=== PATIENT | female | born 1995 | race Caucasian/White ===

== ENCOUNTER 2016-10-17 07:00 | Inpatient (IN) | payer MEDICAID, OTHER ==
[~2016-10-17] VITALS: Ht 162.6 cm; Wt 113.0 kg
[2016-10-17] VITALS (8 sets, daily range): BP systolic 113–129; BP diastolic 46–73; PULSE 63–88; RESP 16–20; TEMP 97.4–98.4; O2SAT 94–100
[~2016-10-17 07:00] MED LIST: CEPH-583 PO; PNV91TAB3
--- OUTSIDE RECORDS SUMMARY | 2016-10-17 07:13 | XMS REPORT | Continuity of Care Document ---
Author Author [facility] Organization [facility] Address Unknown Phone Unavailable Care Team Providers Care Sander And Buffer Name Role Phone CORTEZ BENÍTEZ MD Primary Care Physician [phone] Insurance Providers Guarantor Reese Angelo Address [address] [place] [address] Email [email or web address] Payer [employer]et[employer] Ppo/Open Choice Policy Number [id number] Subscriber's Name Payal Angelo Relationship 19 Child Group Number [id number] Advance Directives Directive Response Recorded Date/Time Dr Shea Resuscitation Status Full Code 06/04/16 4:23pm Problems Past Problems Medical Problem Onset Date Abdominal pain during Unknown Urinary tract infection Unknown Medications Current Home Medications Medication Dose Units Route Directions Days Qty Instructions Start Date Cephalexin (Keflex) 500 Mg Capsule 1 Cap Oral Four Times Daily 7 Days 28 Capsule 06/03/16 Pnv95/Ferrous Fumarate/Fa ( Caplet) 1 Each Tablet Bedtime 06/03/16 Social History Social History Problem Response Recorded Date/Time Onset Date Status Hx Substance Use No 06/03/2016 3:18pm Not Applicable Not Applicable Hx Alcohol Use No 06/03/2016 3:18pm Not Applicable Not Applicable Hospital Discharge Instructions No hospital discharge instructions. Plan of Care Discharge Date 06/04/16 5:00pm Prescriptions See Medication Section Functional Status No functional status results. Allergies, Adverse Reactions, Alerts No known allergies. Immunizations Query Response on File Recorded Date/Time Influenza Vaccine Hx NONE 06/03/16 3:18pm Vital Signs Acute Vital Signs Vital Response Date/Time Temperature (Fahrenheit) 98.4 deg F (96.8 - 99.1) 06/03/2016 4:02pm Temperature (Calculated Celsius) 36.84064 degrees C (36.0 - 37.3) 06/03/2016 4:02pm Pulse Rate (adult) 88 bpm (60 - 100) 06/03/2016 4:02pm Respiratory Rate 18 breaths/min (10 - 20) 06/03/2016 4:02pm O2 Sat by Pulse Oximetry 100 % (90 - 100) 06/03/2016 4:02pm Blood Pressure 129/62 mm Hg 06/03/2016 4:02pm Height (Feet) 5 feet 06/03/2016 3:00pm Height (Inches) 4.00 inches 06/03/2016 3:00pm Weight (Kilograms) 106.100 kg 06/03/2016 3:00pm Body Mass Index (BMI) 40.0 06/03/2016 3:00pm Results Laboratory Results Test Name Result Units Flags Reference Collection Date/Time Result Date/ Time Comments Urine Collection Type VOIDED-NOT CC-MIDSTR 06/03/2016 3:19pm 2015 3:34pm Urine Color YELLOW YELLOW 06/03/2016 3:19pm 06/03/2016 3:34pm Urine Turbidity CLOUDY CLEAR 06/03/2016 3:19pm 06/03/2016 3:34pm Urine Specific [place] 1.020 1.015-1.025 06/03/2016 3:19pm 2015 3:34pm Urine pH 6.0 5.0-8.0 06/03/2016 3:19pm 06/03/2016 3:34pm Urine Leukocyte Esterase 2+ A NEGATIVE 06/03/2016 3:19pm 06/03/2016 3: 34pm Urine Nitrite NEGATIVE NEGATIVE 06/03/2016 3:19pm 06/03/2016 3:34pm Urine Protein TRACE A NEGATIVE 06/03/2016 3:19pm 06/03/2016 3:34pm Urine Glucose (UA) NEGATIVE NEGATIVE 06/03/2016 3:19pm 06/03/2016 3: 34pm Urine Ketones 1+ A NEGATIVE 06/03/2016 3:19pm 06/03/2016 3:34pm Urine Urobilinogen 1.0 EU/DL NORMAL 06/03/2016 3:19pm 06/03/2016 3: 34pm Urine Bilirubin 1+ A NEGATIVE 06/03/2016 3:19pm 06/03/2016 3:34pm Urine Blood NEGATIVE NEGATIVE 06/03/2016 3:19pm 06/03/2016 3:34pm Urine WBC 10-20 /HPF H 0-5 06/03/2016 3:19pm 06/03/2016 3:43pm Urine RBC NONE SEEN /HPF 0-3 06/03/2016 3:19pm 06/03/2016 3:43pm Urine Squamous Epithelial Cells 20-50 06/03/2016 3:19pm 06/03/2016 3:43pm Urine Bacteria 3+ H NEGATIVE 06/03/2016 3:19pm 06/03/2016 3:43pm Urine Culture Indicated CULT REFLEXED &SETUP 06/03/2016 3:19pm 3:43pm White Blood Count 14.7 T/MM3 H 4.5-11.0 06/04/2016 4:36pm 06/04/2016 4: 44pm Red Blood Count 4.02 M/MM3 4.00-5.20 06/04/2016 4:36pm 06/04/2016 4: 44pm Hemoglobin 11.2 GM/DL L 12-16 06/04/2016 4:36pm 06/04/2016 4:44pm Hematocrit 34.1 % L 36-46 06/04/2016 4:36pm 06/04/2016 4:44pm Mean Corpuscular Volume 84.8 UM3 80-100 06/04/2016 4:36pm 06/04/2016 4: 44pm Mean Corpuscular Hemoglobin 27.9 UUG 26-34 06/04/2016 4:36pm 2015 4:44pm Mean Corpuscular Hemoglobin Concent 32.8 GM/DL 31-37 06/04/2016 4:36pm 06/04/2016 4:44pm RDW Standard Deviation 41.9 FL 36.9-50.2 06/04/2016 4:36pm 06/04/2016 4 :44pm Platelet Count 242 T/MM3 130-400 06/04/2016 4:36pm 06/04/2016 4:44pm Mean Platelet Volume 9.5 UM3 9.4-12.4 06/04/2016 4:36pm 06/04/2016 4: 44pm Neutrophils (%) (Auto) 67.1 % H 33-66 06/04/2016 4:36pm 06/04/2016 4: 44pm Lymphocytes (%) (Auto) 22.9 % L 23-45 06/04/2016 4:36pm 06/04/2016 4: 44pm Monocytes (%) (Auto) 9.0 % 0-9.0 06/04/2016 4:36pm 06/04/2016 4:44pm Eosinophils (%) (Auto) 0.6 % 0-4 06/04/2016 4:36pm 06/04/2016 4:44pm Basophils (%) (Auto) 0.1 % 0-2 06/04/2016 4:36pm 06/04/2016 4:44pm Immature Granulocyte % (Auto) 0.3 % 0.0-0.5 06/04/2016 4:36pm 2015 4:44pm Absolute Neutrophils (auto) 9.9 T/MM3 H 1.8-7.7 06/04/2016 4:36pm 2015 4:44pm Absolute Lymphocytes (auto) 3.4 T/MM3 1-4.8 06/04/2016 4:36pm 2015 4:44pm Absolute Monocytes (auto) 1.3 T/MM3 H 0-0.8 06/04/2016 4:36pm 2015 4:44pm Absolute Eosinophils (auto) 0.1 T/MM3 0-0.5 06/04/2016 4:36pm 2015 4:44pm Absolute Basophils (auto) 0.0 T/MM3 0-0.2 06/04/2016 4:36pm 06/04/2016 4:44pm Absolute Immature Granulocyte (auto 0.04 T/MM3 H 0.00-0.03 06/04/2016 4: 36pm 06/04/2016 4:44pm Microbiology Results Procedure Source Organism/Result Collection Date/Time Result Date/Time Result Status Urine Culture Urine, Voided-Not Cc-Midstream CULTURE INITIATED - RESULTS PENDING 06/03/2016 3:43pm 06/03/2016 3:44pm Preliminary Procedures No known history of procedures. Encounters Encounter Location Arrival/Admit Date Discharge/Depart Date Attending Provider Departed [facility] 06/04/16 4:15pm 06/04/16 5:00pm ETHEL DUQUE MD Departed Emergency Room [facility] 06/03/16 2:52pm 06/03/16 4: 02pm MODESTO RIVAS MD Registered Referred [facility] 03/09/16 4:56pm KRISTIAN CAST APRN
--- OUTSIDE RECORDS SUMMARY | 2016-10-17 07:13 | XMS REPORT | Continuity of Care Document ---
Author Author [facility] Organization [facility] Address Unknown Phone Unavailable Care Team Providers Care Port Drier Name Role Phone CORTEZ BENÍTEZ MD Primary Care Physician [phone] Insurance Providers Guarantor Reese Angelo Address [address] [place] [address] Email [email or web address] Payer [employer] Ppo/Open Choice Policy Number [id number] Subscriber's Name Payal Angelo Relationship 19 Child Group Number [id number] Chief Complaint and Reason for Visit Chief Complaint Related Problems Reason for Visit Urinary tract infection Abdominal pain during Problems Past Problems Medical Problem Onset Date [...] No 06/03/2016 3:18pm Not Applicable Not Applicable Query Response Start Date Stop Date Smoking Status Former smoker Hospital Discharge Instructions No hospital discharge instructions. Plan of Care Discharge Date 06/03/16 4:02pm Disposition 01 DISCHARGED HOME, SELF-CARE Condition at Discharge Stable Instructions/Education Provided DI for Urinary Tract Infection (UTI) Prescriptions See Medication Section Referrals ARMANDO DEAN MD Order Date: 1 Week Address: [address] [place] [address] Note: Additional Instructions/Education YOUR LOWER ABDOMINAL PAIN COULD VERY LIKELY BE DUE TO A URINARY TRACT INFECTION. WE WILL BE STARTING YOU ON ANTIBIOTICS. FOLLOW UP WITH YOUR CARGO OPERATIONS AGENT NEXT WEEK. RETURN TO THE ER OVER THE WEEKEND IF YOU DEVELOP WORSENING PAIN OR START BLEEDING. REST THIS WEEKEND; DRINK PLENTY OF FLUIDS AND TAKE TYLENOL FOR PAIN. Functional Status No functional status results. Allergies, Adverse Reactions, Alerts No known allergies. Immunizations Query Response on File Recorded Date/Time Influenza Vaccine Hx NONE 06/03/16 3:18pm Vital Signs Acute Vital Signs Vital Response Date/Time Temperature (Fahrenheit) 98.4 deg F (96.8 - 99.1) 06/03/2016 4:02pm Temperature (Calculated Celsius) 36.91741 degrees C (36.0 - 37.3) 06/03/2016 4:02pm [...] CLEAR 06/03/2016 3:19pm 06/03/2016 3:34pm Urine Specific [place] 1.020 1.015-1.025 06/03/2016 3:19pm 2015 3:34pm Urine [...] 3:43pm Urine Bacteria 3+ H NEGATIVE 06/03/2016 3:pm 06/03/2016 3:43pm Urine Culture Indicated CULT REFLEXED &SETUP 06/03/2016 3:19pm 3:43pm Microbiology Results Procedure Source Organism/Result Collection Date/Time Result Date/Time Result Status Urine Culture Urine, Voided-Not Cc-Midstream CULTURE INITIATED - RESULTS PENDING 06/03/2016 3:43pm 06/03/2016 3:44pm Preliminary Procedures No known history of procedures. Encounters Encounter Location Arrival/Admit Date Discharge/Depart Date Attending Provider Departed Emergency Room [facility] 06/03/16 2:52pm 06/03/16 4: 02pm MODESTO RIVAS MD Registered Referred [facility] 03/09/16 4:56pm KRISTIAN CAST APRN Recent Diagnosis
[2016-10-17] MEDS ORDERED: LR 1,000 ML IV PRN (07:33)
[2016-10-17] MEDS ORDERED: FAMOTIDINE 20mg IVPB 50 ML IV ONE (07:45)
[2016-10-17] MEDS ORDERED: CITRIC ACID/SODIUM CITRATE 30 ML PO ONE (07:45)
[2016-10-17] MEDS ORDERED: LIDOCAINE 1% (10mg/ml) 2ml SDV ID PRN (07:45)
[2016-10-17] MEDS ORDERED: CEFAZOLIN 2 GM in D5W 50ml 50 ML IV ONE (07:45)
[2016-10-17] MEDS ORDERED: PHENYLEPHRINE 10mg/ml INJECTION ONE (07:48)
[2016-10-17] MEDS ORDERED: EPHEDRINE SULFATE 50mg/ml INJECTION ONE (07:48)
[2016-10-17] MEDS ORDERED: MORPHINE SULFATE PF 5mg/10ml VL (DURAMORPH) ONE (07:53)
[2016-10-17] MEDS ORDERED: FENTANYL 100mcg/2ml INJECTION ONE (07:53)
[2016-10-17 07:57] LABS: BASOPHILS % (AUTO) 0.1 % (0-2); EOSINOPHILS # (AUTO) 0.1 T/MM3 (0-0.5); EOSINOPHILS % (AUTO) 0.6 % (0-4); HCT - HEMATOCRIT 33.3 % (36-46); HGB - HEMOGLOBIN 10.7 GM/DL (12-16); IMMATURE GRANULOCYTE # (AUTO) 0.04 T/MM3 (0.00-0.03); IMMATURE GRANULOCYTE % (AUTO) 0.3 % (0.0-0.5); LYMPHOCYTES # (AUTO) 3.7 T/MM3 (1-4.8); LYMPHOCYTES % (AUTO) 27.1 % (23-45); MEAN CORPUSCULAR HGB 27.2 UUG (26-34); MEAN CORPUSCULAR HGB CONC(MCHC 32.1 GM/DL (31-37); MEAN CORPUSCULAR VOLUME 84.7 UM3 (80-100); MEAN PLATELET VOLUME 10.1 UM3 (9.4-12.4); MONOCYTES # (AUTO) 1.1 T/MM3 (0-0.8); NEUTROPHILS #(AUTO)-ABSOLUTE 8.8 T/MM3 (1.8-7.7); NEUTROPHILS % (AUTO) 63.9 % (33-66); RED BLOOD COUNT 3.93 M/MM3 (4.00-5.20); WBC - WHITE BLOOD COUNT 13.8 T/MM3 (4.5-11.0)
--- NOTE | 2016-10-17 08:01 | ANESOB ---
Epidural/ Date/Time DATE: 10/17/16 TIME: 07:58 Preop Diagnosis breech 37 week Procedure: Plan: Spinal Height: 5 ' 4.00 " Weight: 113.000 kg BMI: kg/m2 P:0 Medications & Allergies Inpatient Medications Current Medications Medications (Trade) Dose Ordered Sig/Rigo Start Time Stop Time Status Last Admin Dose Admin Lactated Ringer's (Lactated Ringers) 1,000 ml @ 150 mls/hr Q6H40M PRN 10/17/16 07:33 10/17/16 07:44 150 MLS/HR Lidocaine HCl (Xylocaine 1%) 0.2 mg PRN PRN 10/17/16 07:45 Pnv95/Ferrous Fumarate/FA ( Caplet) 1 Each Tablet, HS, (Reported) Last Taken: on 10/16/16 2100 Discontinued Medications Cephalexin (Keflex) 500 Mg Capsule, 1 CAP PO QID Discontinued Reason: Changed Medications Coded Allergies: No Known Allergies (Unverified , 10/17/16) Medical/Surgical History Anesthesia PMH: Denies: *Diabetes, Anesthesia Reactions, Asthma, Malignant Hyperthermia, Pneumonia, Renal Disease, Seizures, Thyroid Disease Smoking Status: Never smoker Does patient use chewing tobac: No Second Hand Exposure: No Substance Use Type: does not use Alcohol Intake: none Anesthesia Adverse Reactions: FOUND none Family Hx of Anesthesia Advers: none Hx of Motion Sickness: No Complications During : No Pertinent Findings Laboratory Tests 10/17/16 07:46 EKG Rhythm: Sinus Rhythm Physical Exam Respiratory: Lungs clear Cardiovascular: No murmur, Regular rate, rhythm Airway Assessment Mallampati Score: II TMD: 3 Fingerbreadths Neck Extension: Good Overall Assessment: No Airway Concerns ASA: 2 Discussion Discussed risks/options/alternatives of anesthesia. Patient consents. Nursing pain assessment noted. Present for Discussion: Present: Parent Attestation Statement Prior to the delivery of any anesthetic medication, I examined the patient, developed the plan, obtained the patient's consent and discussed the risk and benefits of the procedure with the patient/guardian. If the note happens to be signed after anesthesia start time, it is only due to providing efficient care of the patient and documenting at a time when the computer is available. LAUREN DOUGHERTY CRNA Oct 17, 2016 08:00
[2016-10-17] MEDS ORDERED: NALOXONE 0.4mg/ml INJECTION IV PRN (09:00)
[2016-10-17] MEDS ORDERED: OXYTOCIN 30 UNIT in D5LR 500 ML IV SCH (09:01)
--- NOTE | 2016-10-17 09:12 | OPNOTEPD ---
Operative Note Date of Operation Date of Operation: 10/17/16 General : 1 Para: 0 Gestation (Weeks): 37 Gestation (Days): 1 Preoperative Diagnosis PROM Breech Postoperative Diagnosis Same as preoperative dx Uterine septum Procedure Primary, Low-transverse Surgeon Michelle Duque MD Dialysis Patient Care Technician Sara Avila MD Anesthesia Anesthesia Provider: Elvis Kumar CRNA Anesthesia Type: spinal Complications No Complications: No complications Estimated Blood Loss 700 Findings viable female, clear fluids, normal adenexa Alexandre breech Uterine septum APGARS 5,8,9 [place] Weight 2810 Name Kitty Neff presented to with c/o LOF. Her Amnisure was positive. Her baby was breech on sono yesterday. Her cervix was 1 cm dilated per RN. She was consented for a c/s. Description of Procedure The patient was taken to the operating room where anesthesia was obtained . She was placed in the dorsal supine position with a leftward tilt. A Mccormack catheter was placed . She was prepared and draped in the normal sterile fashion. A Pfannenstiel incision was created 2 cm above the symphysis pubis and carried down to the fascia. The fascia was incised in the midline with the scalpel and then extended laterally with the Crowder scissors. The fascia was elevated, and the underlying rectus muscles were dissected off. The peritoneum was entered sharply with Metzenbaums. This was extended superiorly and inferiorly with good visualization of the bladder. The bladder blade was inserted. A bladder flap was created sharply. The lower uterine segment was incised in a transverse fashion [id number] with the scalpel and bluntly extended. The membranes were ruptured. The breech was delivered up to the level of the scapula. The legs were delivered. The arms were swept down and out. The body was lifted, and the head delivered atraumatically. The nose and mouth were suctioned. The cord was clamped and cut. The was handed to Dr. Mccain who was asked to attend the delivery due to breech. The placenta delivered spontaneously. The uterus was exteriorized and cleared of all clots and debris. The inside of the uterus was palpated, and a large septum was noted. There was not a fibroid. The uterus was closed with running 0-monocryl. Hemostasis was obtained on the serosal edges with cautery. The uterus was returned to the abdomen. The gutters were cleared of all clots and debris. The uterine incision was inspected one final time and still noted to be hemostatic. The peritoneum was closed with running 2-0 vicryl. Hemostasis was obtained in the rectus muscles with the cautery. The fascia was closed with running 0-vicryl. Hemostasis was obtained in the subcutaneous tissue with the cautery. The deep tissue was closed with running 2-0 chromic. The skin was closed with 4-0 vicryl in a subcuticular manner. Steri-strips were placed. Sponge, sharp, and instrument counts were correct. The patient tolerated the procedure well and was taken to the recovery room in good condition. MICHELLE DUQUE MD Oct 17, 2016 09:12
[2016-10-17] MEDS ORDERED: HYDROCORTISONE 2.5% CREAM 30 GM RECTALLY PRN (09:15)
[2016-10-17] MEDS ORDERED: DiphenhydrAMINE 25 MG CAPSULE PO PRN (09:15)
[2016-10-17] MEDS ORDERED: CALCIUM CARBONATE 500mg Chewable TAB PO PRN (09:15)
[2016-10-17] MEDS ORDERED: ACETAMINOPHEN 500 MG TABLET PO PRN (09:15)
[2016-10-17] MEDS ORDERED: MILK OF MAGNESIA 30 ML SUSP PO PRN (09:15)
[2016-10-17] MEDS: D5LR 1,000 ML IV SCH ×2 (09:22→19:01)
[2016-10-17] MEDS: SIMETHICONE 80 MG CHEWABLE TABLET PO CHEW SCH ×4 (09:30→22:09)
[2016-10-17] MEDS: IBUPROFEN 800 MG TABLET PO PRN ×2 (11:46→19:20)
--- NOTE | 2016-10-17 12:17 | ANESPO ---
Post-Op Note Date 10/17/16 Time: 12:17 Status Pt Participated in Evaluation: Pt participated in person Vital Signs Date Time Temp Pulse Resp B/P Pulse Ox O2 Delivery O2 Flow Rate FiO2 10/17/16 10:24 18 99 10/17/16 07:51 98.4 88 124/73 Respiratory Function: Airway patent, Regular respirations Cardiovascular Function: Regular pulse Mental Status: Alert/oriented Pain Level Intensity: 4 Hydration: Taking po fluids Complications during Recovery None apparent Follow-Up Instructions Instructions Per Surgeon LAUREN DOUGHERTY CRNA Oct 17, 2016 12:17
[2016-10-17] MEDS: HYDROCODONE/APAP 5 mg/325 mg TABLET PO PRN ×3 (14:04→23:47)
[2016-10-17 14:11] LABS: HCT - HEMATOCRIT 32.4 % (36-46); HGB - HEMOGLOBIN 10.5 GM/DL (12-16); MEAN CORPUSCULAR HGB 27.3 UUG (26-34); MEAN CORPUSCULAR HGB CONC(MCHC 32.4 GM/DL (31-37); MEAN CORPUSCULAR VOLUME 84.2 UM3 (80-100); RED BLOOD COUNT 3.85 M/MM3 (4.00-5.20); WBC - WHITE BLOOD COUNT 15.1 T/MM3 (4.5-11.0)
--- NOTE | 2016-10-17 17:41 | PNPDOC ---
Progress Note PPD0 Rubella: Immune GBS: Positive Blood Type:A pos Subjective 10/17/16 Lochia: Minimal Pain: Controlled Voiding: Mccormack still in Place Objective Vital Signs Date Time Temp Pulse Resp B/P Pulse Ox O2 Delivery O2 Flow Rate FiO2 10/17/16 16:30 16 98 10/17/16 16:30 97.4 63 129/66 Room Air Urine Output: Good General: Alert and Oriented Laboratory Item Value Date Time Hemoglobin 10.5 GM/DL L 10/17/16 1401 Assessment (1) Status post primary low transverse section Plan: Routine Care ETHEL DUQUE MD Oct 17, 2016 17:40
[2016-10-18] VITALS (7 sets, daily range): BP systolic 115–137; BP diastolic 54–68; PULSE 70–79; RESP 16–18; TEMP 97.5–97.7; O2SAT 98–100
[2016-10-18] MEDS: IBUPROFEN 800 MG TABLET PO PRN ×2 (05:09→14:40)
[2016-10-18] MEDS: HYDROCODONE/APAP 5 mg/325 mg TABLET PO PRN ×3 (05:09→19:37)
--- NOTE | 2016-10-18 08:17 | PNPDOC ---
YONATHAN PINON APRN 10/18/16 0817: Progress Note PPD1 Rubella: Immune GBS: Positive Blood Type:A pos Subjective 10/18/16 Lochia: Moderate Pain: Controlled Voiding: Voiding Nausea and Vomiting: No Nausea/Vomiting Objective VSS AF Vital Signs Date Time Temp Pulse Resp B/P Pulse Ox O2 Delivery O2 Flow Rate FiO2 10/18/16 05:22 97.7 70 18 123/65 99 Room Air General: Alert and Oriented Abdomen: Fundus Firm Incision: Clean/Dry/Intact Extremities: Non-tender Edema: None Assessment Primary C/S (1) Status post primary low transverse section Plan: Routine Care Plan Routine Care ETHEL DUQUE MD 10/18/16 0939: Progress Note Plan Patient seen, and I agree with Yonathan's note. YONATHAN PINON APRN Oct 18, 2016 08:17 ETHEL DUQUE MD Oct 18, 2016 09:39
[2016-10-18] MEDS ORDERED: DOCUSATE CALCIUM 240 MG CAPSULE PO SCH (09:00)
[2016-10-18] MEDS: SIMETHICONE 80 MG CHEWABLE TABLET PO CHEW SCH ×3 (11:25→19:40)
[2016-10-19] VITALS: BP 119/53; PULSE 78; RESP 16; TEMP 98.3; O2SAT 97
[2016-10-19] MEDS: SIMETHICONE 80 MG CHEWABLE TABLET PO CHEW SCH (00:07)
[2016-10-19] MEDS: HYDROCODONE/APAP 5 mg/325 mg TABLET PO PRN (06:50)
[2016-10-19] MEDS: IBUPROFEN 800 MG TABLET PO PRN (06:51)
[2016-10-19 07:24] VITALS: BP 128/68; PULSE 78; RESP 16; TEMP 97.9; O2SAT 99
--- NOTE | 2016-10-19 08:12 | PNPDOC ---
Progress Note PPD2 Rubella: Immune GBS: Positive Blood Type:A pos Subjective 10/19/16 Lochia: Minimal Pain: Controlled Voiding: Voiding Nausea and Vomiting: No Nausea/Vomiting Objective VSS Vital Signs Date Time Temp Pulse Resp B/P Pulse Ox O2 Delivery O2 Flow Rate FiO2 10/19/16 07:24 97.9 78 16 128/68 99 Room Air General: Alert and Oriented Abdomen: Fundus Firm Incision: Clean/Dry/Intact Extremities: Non-tender Edema: None Assessment Primary C/S (1) Status post primary low transverse section Plan: Routine Care, Discharge Home Plan Routine Care, Discharge Home (Rx of [place] 5mg/325mg 30 & Ibuprofen 800mg po #50) YONATHAN PINON APRN Oct 19, 2016 08:10
[2016-10-19] MEDS ORDERED: SIME80TA12 PO CHEW (08:14)
[2016-10-19] MEDS ORDERED: HYDR-4246 PO (08:14)
[2016-10-19] MEDS ORDERED: IBUP-1547 PO (08:14)
== END 2016-10-19 10:35 | disposition home or self-care (01) | DRG 766 ==
LOC: OBOBS 07:00 → UNDOADMOB 07:00 → MC 07:00 → OBOBS 07:40 → MC 08:45 → EDSTATUS 10-30 12:00
PROVIDERS: ADMIT Obstetrics & Gynecology; ATTEND Obstetrics & Gynecology
PROC: 10D00Z1 Extraction of Products of Conception, Low, Open Approach (ICD-10-PCS; principal; 2016-10-17 08:28)
DX: O32.1XX0 Maternal care for breech presentation, not applicable or unspecified (principal); O42.02 Full-term premature rupture of membranes, onset of labor within 24 hours of rupture; O34.593 Maternal care for other abnormalities of gravid uterus, third trimester; Q51.2 Other doubling of uterus; O99.824 Streptococcus B carrier state complicating childbirth; Z3A.37 37 weeks gestation of pregnancy; Z37.0 Single live birth
CPT/HCPCS: 36415; 84112; 85025; 85027; 86850; 86900; 86901